=== PATIENT | female | born 1990 | race African-American/Black ===

== ENCOUNTER 2017-09-06 15:28 | Emergency (ER) | payer BC ==
[2017-09-06] MEDS ORDERED: Acetaminop/Codeine 30 MG TAB* 1 TAB (300 MG/30 MG) PO ONE (16:20)
[2017-09-06] MEDS ORDERED: Ketorolac INJ* 60 MG/2 ML VIAL IM ONE (16:20)
--- NOTE | 2017-09-06 16:20 | ED ---
Throat Pain/Nasal Congestion - HPI Summary HPI Summary: Rt upper post tooth w/ pain. STarted today - worse - iburpofen heliong some. Swelling. Denies f/c/n/v/d, ln'S, DRAINAGE, - History of Current Complaint Chief Complaint: EDDentalPain Time Seen by Provider: 09/06/17 15:53 - Allergies/Home Medications Allergies/Adverse Reactions: Allergies Allergy/AdvReac Type Severity Reaction Status Date / Time Sulfa Antibiotics Allergy Rash Verified 09/06/17 16:33 PMH/Surg Hx/FS Hx/Imm Hx Infectious Disease History: No Infectious Disease History: Denies: Traveled Outside the [place] in Last 30 Days Physical Exam Vital Signs On Initial Exam: Initial Vitals Temp Pulse Resp BP Pulse Ox 97.9 F 91 18 112/63 100 09/06/17 15:41 09/06/17 15:41 09/06/17 15:41 09/06/17 15:41 09/06/17 15:41 Dental: Positive: Gross Decay/Caries @ - CAVITY ALONG BUCCAL ASPECT OF #2 - SURROUNDING TISSUE EDEMATOUS AND ttp. Negative: Abscess @ Neck: Positive: Supple, Nontender, No Lymphadenopathy Diagnostics - Vital Signs Vital Signs Temp Pulse Resp BP Pulse Ox 09/06/17 15:41 97.9 F 91 18 112/63 100 - Laboratory Lab Statement: Any lab studies that have been ordered have been reviewed, and results considered in the medical decision making process. EENT Course/Dx - Diagnoses Provider Diagnoses: Pain due to dental caries Discharge - Discharge Plan Condition: Stable Disposition: HOME Prescriptions: Acetaminop/Codeine 30 MG TAB* [Tylenol/Codeine 30 MG TAB*] 1 tab PO Q6H PRN #15 tab MDD 4 PRN Reason: Pain Amoxicillin PO (*) [Amoxicillin 500 MG CAP*] 500 mg PO TID #30 cap Ibuprofen TAB* [Motrin TAB* 800 MG] 800 mg PO Q8HR PRN #20 tab PRN Reason: Pain Patient Education Materials: Toothache (ED) Forms: *Work Release Additional Instructions: Follow-up with dentist FELIPE - call tomorrow to schedule an appointment Take medications as directed *If you develop worsening of facial swelling, fever, chills, trouble breathing or swallowing, return to ED
[2017-09-06 17:23] VITALS: BP 115/74
== END 2017-09-06 17:22 | disposition home or self-care (01) ==
LOC: ED 15:28
DX: K02.9 Dental caries, unspecified (principal); Z88.2 Allergy status to sulfonamides
CPT/HCPCS: 96372; 99282; A9270-GY; J1885